=== PATIENT | male | born 1965 | race Two or more races ===

== ENCOUNTER → 2016-09-07 | Outpatient (CLI) | payer MEDICARE ==
[2016-02-25 12:00] VITALS: BP 131/81
[~2016-09-07] MED LIST: ASPI81TA9 PO; ATOR20TA58 PO; ATOR40TA59 PO; LOSA100T6 PO; METO25TA4 PO; PRAS10TA4 PO
== END | disposition home or self-care (01) ==
LOC: LAB 10:04
PROVIDERS: ATTEND Orthopaedic Surgery Sports Medicine
DX: M25.561 Pain in right knee (principal)
CPT/HCPCS: 36415; 85651; 86141

== ENCOUNTER 2016-12-10 16:22 | Emergency (ER) | payer MEDICARE ==
[~2016-12-10] VITALS: Ht 182.9 cm; Wt 99.8 kg
[2016-12-10] MEDS ORDERED: IV NORMAL SALINE 1000ML BAG 1,000 ML IV SCH (17:10)
[2016-12-10] MEDS ORDERED: LORAZEPAM 2 MG/ML VIAL. IV ONE (17:15)
[2016-12-10] MEDS ORDERED: MORPHINE SULFATE 4 MG/ML DISP.SYRIN. IV ONE (17:15)
[2016-12-10 17:31] LABS: BASO # 0.1 x10^3/uL (0.0-0.2); BASO % 1 % (0-3); EOS % 1 % (0-3); HEMATOCRIT 40.1 % (39.0-53.0); HEMOGLOBIN 13.2 g/dL (13.0-17.5); LYMPH # 2.6 x10^3/uL (1.0-4.8); LYMPH % 31 % (24-48); MEAN CORPUSCULAR HEMOGLOBIN 28 pg (25-35); MEAN CORPUSCULAR HGB CONC 33 g/dL (31-37); MEAN CORPUSCULAR VOLUME 84 fL (79-100); MONO % 9 % (0-9); NEUT % 58 % (31-73); PLATELET COUNT 194 x10^3/uL (140-400); RED BLOOD COUNT 4.77 x10^6/uL (4.30-5.70); RED CELL DISTRIBUTION WIDTH 15.2 % (11.5-14.5); WHITE BLOOD COUNT 8.5 x10^3/uL (4.0-11.0)
[2016-12-10 17:59] LABS: CREATININE 0.6 mg/dL (0.7-1.3); POTASSIUM 4.1 mmol/L (3.5-5.1)
[2016-12-10 18:05] LABS: ALBUMIN 3.8 g/dL (3.4-5.0); ALBUMIN/GLOBULIN RATIO 1.2 (1.0-1.7); TOTAL BILIRUBIN 0.5 mg/dL (0.2-1.0); TOTAL PROTEIN 7.1 g/dL (6.4-8.2)
[2016-12-10 18:19] LABS: BILIRUBIN,URINE SMALL (NEG); GLUCOSE,URINE NEGATIVE (NEG); NITRITE,URINE NEGATIVE (NEG); PH,URINE 5.5; PROTEIN,URINE NEGATIVE (NEG-TRACE)
[2016-12-10 18:27] LABS: BACTERIA,URINE 0 /HPF (0-FEW); RBC,URINE 0 /HPF (0-2); SQUAMOUS EPITHELIAL CELL,UR MANY /LPF; WBC,URINE RARE /HPF (0-4)
[2016-12-10 18:54] LABS: NEG OBC FOB NEG; POS OBC FOB POS
[2016-12-10] MEDS ORDERED: IOHEXOL 300 MG/ML 75 ML VIAL IV ONE (19:30)
[2016-12-10] MEDS ORDERED: CONTRAST GIVEN MC PRN (19:30)
--- NOTE | 2016-12-10 19:52 | RAD ---
PROCEDURE Abdomen and pelvis CT with intravenous contrast. HISTORY Rectal pain and rectal bleeding. Weight loss. TECHNIQUE Computed tomographic images the abdomen and pelvis were obtained following the administration of 75 cc Omnipaque 300 intravenous contrast. One or more of the following individualized dose reduction techniques were utilized for this examination: 1. Automated exposure control; 2. Adjustment of the mA and/or kV according to patient size; 3. Use of iterative reconstruction technique. COMPARISON None. FINDINGS Evaluation of the lower thorax demonstrates posterior dependent and basilar atelectasis. No focal hepatic lesion is seen. The gallbladder is contracted, likely due to the postprandial status the patient. The stomach is mildly distended with fluid and recently ingested bolus. The pancreas, spleen, and left adrenal gland are unremarkable. There is slight nodularity along the right adrenal gland, likely due to volume averaging artifact. The kidneys are unremarkable. The appendix is unremarkable. There is distal colonic diverticulosis. Those no convincing diverticulitis. There is slight mucosal thickening involving the left aspect of the inferior rectum, possibly due to relative underdistention. The bladder is unremarkable. No pathologically enlarged lymph node is seen. There are degenerative changes throughout spine, resulting in stenosis at L4-L5 and L5-S1. No suspicious osseous lesion is seen. IMPRESSION 1. Mild mucosal thickening involving the left aspect of the inferior rectum, possibly due to underdistention. There is no surrounding inflammatory stranding to suggest proctitis. Correlate with physical exam findings and possible proctoscopy if there is concern for an intrinsic mucosal lesion. 2. Distal colonic diverticulosis without diverticulitis. Electronically signed by: Shereen Walton (Dec 10, 2016 19:51:08)
[2016-12-10 20:30] VITALS: BP 120/71
[2016-12-10] MEDS ORDERED: OXYC-323 PO (20:39)
[2016-12-10] MEDS ORDERED: SENN1TAB7 PO (20:39)
--- NOTE | 2016-12-10 20:39 | PHYS DOC ---
Past Medical History Past Medical History: Hypertension, MS Past Surgical History: Knee Replacement Additional Past Surgical Histo: heart stents Alcohol Use: None Drug Use: None Adult General Chief Complaint Chief Complaint: WEAKNESS/GENERALIZED HPI HPI Patient is a 51 year old male who presents with rectal pain and episode of rectal bleeding. Patient reports 3-4 days ago he had an episode of blood in his stool. Has had a small amount a few times since. In addition, he reports that over this time he has had sharp pain at his rectum. Pain is worse when he is on his feet. He has not taken any meds for symptoms. Does not take anticoagulants, does take ASA and plavix. No prior similar episodes. Review of Systems Review of Systems Constitutional: Denies fever or chills Respiratory: Denies cough or shortness of breath Cardiovascular: Denies chest pain GI: Rectal pain, bloody stools. Denies abdominal pain, nausea, vomiting, diarrhea : Denies dysuria or hematuria Musculoskeletal: Denies back pain or joint pain Integument: Denies rash or skin lesions Neurologic: Denies headache, focal weakness or sensory changes Current Medications Current Medications Current Medications Medications (Trade) Dose Ordered Sig/Primo Start Time Stop Time Status Last Admin Dose Admin Info (Do NOT chart on this entry -- for MONITORING) 1 each PRN DAILY PRN 12/10/16 19:30 12/10/16 21:06 DC Iohexol (Omnipaque 300 Mg/ml) 75 ml 1X ONCE 12/10/16 19:30 12/10/16 19:31 DC 12/10/16 19:23 75 ML Lorazepam (Ativan) 1 mg 1X ONCE 12/10/16 17:15 12/10/16 17:16 DC 12/10/16 17:31 1 MG Morphine Sulfate 4 mg 1X ONCE 12/10/16 17:15 12/10/16 17:16 DC 12/10/16 17:30 4 MG Oxycodone/ Acetaminophen (Percocet 5/325) 2 tab 1X ONCE 12/10/16 21:00 12/10/16 21:01 DC 12/10/16 20:55 2 TAB Sodium Chloride (Iv Sodium Chloride 0.9% 1000ml Bag) 1,000 ml @ 1,000 mls/hr Q1H 12/10/16 17:10 12/10/16 18:09 DC 12/10/16 17:30 1,000 MLS/HR Allergies Allergies Allergies Coded Allergies Type Severity Reaction Last Updated Verified No Known Drug Allergies 02/23/16 No Physical Exam Physical Exam Constitutional: Well developed, well nourished, no acute distress, non-toxic appearance Cardiovascular: Heart rate normal, regular rhythm, no murmur Lungs & Thorax: Bilateral breath sounds clear to auscultation Abdomen: Bowel sounds normal, soft, non-distended, no TTP Rectal: Small hemorrhoid noted, no blood seen, small amount light brown stool in vault Skin: Warm, dry, no erythema, no rash Extremities: No obvious deformity, no edema Neurologic: Alert and oriented X 3, no gross deficits noted Psychologic: Anxious Current Patient Data Vital Signs Vital Signs Date Time Temp Pulse Resp B/P Pulse Ox O2 Delivery O2 Flow Rate FiO2 12/10/16 20:30 50 19 120/71 96 Room Air 12/10/16 16:35 97.7 97.7 Lab Values Laboratory Tests Test 12/10/16 17:20 12/10/16 18:15 12/10/16 18:47 White Blood Count 8.5x10^3/uL (4.0-11.0) Red Blood Count 4.77x10^6/uL (4.30-5.70) Hemoglobin 13.2g/dL (13.0-17.5) Hematocrit 40.1% (39.0-53.0) Mean Corpuscular Volume 84fL (79-100) Mean Corpuscular Hemoglobin 28pg (25-35) Mean Corpuscular Hemoglobin Concent 33g/dL (31-37) Red Cell Distribution Width 15.2% (11.5-14.5) H Platelet Count 194x10^3/uL (140-400) Neutrophils (%) (Auto) 58% (31-73) Lymphocytes (%) (Auto) 31% (24-48) Monocytes (%) (Auto) 9% (0-9) Eosinophils (%) (Auto) 1% (0-3) Basophils (%) (Auto) 1% (0-3) Neutrophils # (Auto) 5.0x10^3uL (1.8-7.7) Lymphocytes # (Auto) 2.6x10^3/uL (1.0-4.8) Monocytes # (Auto) 0.8x10^3/uL (0.0-1.1) Eosinophils # (Auto) 0.1x10^3/uL (0.0-0.7) Basophils # (Auto) 0.1x10^3/uL (0.0-0.2) Sodium Level 139mmol/L (136-145) Potassium Level 4.1mmol/L (3.5-5.1) Chloride Level 102mmol/L (98-107) Carbon Dioxide Level 28mmol/L (21-32) Anion Gap 9 (6-14) Blood Urea Nitrogen 17mg/dL (8-26) Creatinine 0.6mg/dL (0.7-1.3) L Estimated GFR (Cockcroft-Gault) 142.0 BUN/Creatinine Ratio 28 (6-20) H Glucose Level 107mg/dL (70-99) H Calcium Level 9.0mg/dL (8.5-10.1) Total Bilirubin 0.5mg/dL (0.2-1.0) Aspartate Amino Transferase (AST) 23U/L (15-37) Alanine Aminotransferase (ALT) 27U/L (16-63) Alkaline Phosphatase 84U/L (46-116) Total Protein 7.1g/dL (6.4-8.2) Albumin 3.8g/dL (3.4-5.0) Albumin/Globulin Ratio 1.2 (1.0-1.7) Lipase 758U/L (73-393) H Urine Collection Type Void Urine Color Dk yellow Urine Clarity Clear Urine pH 5.5 Urine Specific [place] >=1.030 Urine Protein Negativemg/dL (NEG-TRACE) Urine Glucose (UA) Negativemg/dL (NEG) Urine Ketones (Stick) Negativemg/dL (NEG) Urine Blood Negative (NEG) Urine Nitrite Negative (NEG) Urine Bilirubin Small (NEG) Urine Urobilinogen Dipstick 1.0mg/dL (0.2 mg/dL) Urine Leukocyte Esterase Trace (NEG) Urine RBC 0/HPF (0-2) Urine WBC Rare/HPF (0-4) Urine Squamous Epithelial Cells Many/LPF Urine Bacteria 0/HPF (0-FEW) Urine Hyaline Casts Many/HPF Urine Mucus Marked/LPF Stool Occult Blood Negative (NEG) Laboratory Tests 12/10/16 17:20 Laboratory Tests 12/10/16 17:20 EKG EKG [] Radiology/Procedures Radiology/Procedures CT A/P: IMPRESSION 1. Mild mucosal thickening involving the left aspect of the inferior rectum, possibly due to underdistention. There is no surrounding inflammatory stranding to suggest proctitis. Correlate with physical exam findings and possible proctoscopy if there is concern for an intrinsic mucosal lesion. 2. Distal colonic diverticulosis without diverticulitis. Course & Med Decision Making Course & Med Decision Making Pertinent Labs and Imaging studies reviewed. (See chart for details) Patient is 51 year old male who presents with rectal pain and blood per rectum. Small hemorrhoid noted on exam, labs and CT ordered to assess for other possible causes. IV fluids, pain meds, small dose of anxiolytic ordered for symptoms. Labs unremarkable except for elevated lipase, however patient has no pain or TTP at site of pancreas and it appears normal on CT so will not further pursue this at this time. Fecal occult blood negative. CT results as above. Discussed results with patient. Discussed option of discharge home with outpatient GI follow up vs admission. Patient ok going home at this time. Will discharge with rx for pain meds, bowel regimen, instructions for close follow up , return precautions. Dragon Disclaimer Dragon Disclaimer This electronic medical record was generated, in whole or in part, using a voice recognition dictation system. Departure Departure Impression: Primary Impression: Rectal pain Additional Impression: Blood per rectum Disposition: 01 HOME, SELF-CARE Condition: STABLE Referrals: MARIA ALEJANDRA LI MD (PCP) DANAE TSANG MD Patient Instructions: Diverticulosis, Rectal Bleeding Additional Instructions: Thank you for allowing us to provide care today in the Emergency Department. Take the provided medication as directed. Use caution when taking the pain medication as it can make you drowsy. Schedule a follow up appointment with a GI specialist using the provided contact information. Also keep your appointment with your primary care physician. Return promptly to the Emergency Department if you develop any new or concerning symptoms. Scripts Sennosides/Docusate Sodium (Senna-Docusate Sodium Tablet)1 Each Tablet1 Each PO DAILY #30 Prov:ERICH BARNEY MD 12/10/16 Oxycodone/Apap 5-325 (Percocet 5-325 Mg Tablet)1 Each Tablet1 Tab PO PRN Q6HRS PRN PAIN #20 TAB Ref 0 Prov:ERICH BARNEY MD 12/10/16 Problem Qualifiers ERICH BARNEY MD Dec 10, 2016 20:39
[2016-12-10] MEDS ORDERED: OXYCODONE/APAP 5/325 TABLET. PO ONE (21:00)
== END 2016-12-10 21:05 | disposition home or self-care (01) ==
LOC: ER 16:22
DX: K62.89 Other specified diseases of anus and rectum (principal); K62.5 Hemorrhage of anus and rectum; K64.9 Unspecified hemorrhoids; I10 Essential (primary) hypertension; I25.2 Old myocardial infarction; Z95.5 Presence of coronary angioplasty implant and graft; R74.8 Abnormal levels of other serum enzymes
CPT/HCPCS: 36415; 74177; 80053; 81001; 82274; 83690; 85027; 87086; 96361; 96374; 96375; 99285; J2060; J2270; J7030; Q9967

== ENCOUNTER → 2016-12-17 | Outpatient (CLI) | payer MEDICARE ==
[2015-12-08 21:58] VITALS: BP 139/73
[~2016-12-17] MED LIST changes: +CLOP75TA PO; +GADOBUTROL 10 MMOL/10 ML VIAL IV ONE; +OXYC-323 PO; -PRAS10TA4 PO; +PRAS10TA9 PO; +SENN1TAB7 PO
[2016-12-17 11:08] LABS: AMYLASE 174 U/L (25-115)
--- NOTE | 2016-12-17 13:07 | RAD ---
MR pelvis without and with intravenous contrast History: Rectal pain for 2 weeks, 1 bloody stool, constipation. Comparison: None. Technique: MRI of the pelvis was performed both prior to and after intravenous gadolinium, 10 mL Gadavist. Precontrast images were T1 without fat saturation and T2 with fat saturation in all 3 anatomic planes. Post contrast imaging was T1 with fat saturation all 3 anatomic planes. Findings: Given the level of distention of the urinary bladder, bladder wall is likely within normal limits. No free fluid is seen within the pelvis. There is evidence of degenerative change involving the visualized lower lumbar spine. Appears to be mild wall thickening of the rectum and anus with mild hyperenhancement. The sigmoid colon demonstrates evidence of colonic diverticulosis, and there is evidence of a mild wall thickening of the sigmoid colon, although it is uncertain if this is due to inflammatory change or is secondary to muscular hypertrophy given the diverticulosis. Impression: 1. There is evidence of mild wall thickening and hyperenhancement of the rectum and anus. Findings are compatible with mild proctitis. 2. Sigmoid colon demonstrates diverticulosis; apparent mild wall thickening of the sigmoid colon could be due to mild distal colitis versus muscular hypertrophy secondary to diverticulosis. 3. No abscess is identified.
== END | disposition home or self-care (01) ==
LOC: MRI 10:15 → MERGE 10:15
PROVIDERS: ATTEND Internal Medicine Gastroenterology
DX: K62.89 Other specified diseases of anus and rectum (principal)
CPT/HCPCS: 36415; 72197; 82150; 83690; A9585

== ENCOUNTER → 2016-12-22 | Outpatient (CLI) | payer MEDICARE ==
[2016-12-10 20:30] VITALS: BP 120/71
[~2016-12-22] MED LIST changes: -GADOBUTROL 10 MMOL/10 ML VIAL IV ONE
--- NOTE | 2016-12-22 10:06 | CARD ---
APPROVED REPORT EXAM: Two-dimensional and M-mode echocardiogram with Doppler and color Doppler. Other Information Quality : GoodHR: 50bpm Rhythm : Bradycardia INDICATION Cardiac Disease: CAD 2D DIMENSIONS RVDd3.7 (2.9-3.5cm)Left Atrium(2D)5.1 (1.6-4.0cm) IVSd1.4 (0.7-1.1cm)Aortic Root(2D)3.1 (2.0-3.7cm) LVDd5.3 (3.9-5.9cm)LVOT Diameter2.3 (1.8-2.4cm) PWd1.3 (0.7-1.1cm)LVDs3.7 (2.5-4.0cm) FS (%) 30.6 %SV79.6 ml LVEF(%)57.6 (>50%) Aortic Valve AoV Peak Ruy.128.7cm/sAoV VTI33.4cm AO Peak GR.6.6mmHgLVOT Peak Ruy.83.6cm/s LVOT VTI 19.38cmAO Mean GR.4mmHg LYDIA (VMAX)1.04mz9JIR (VTI)2.42cm2 Mitral Valve MV E Pcbwbxux34.8cm/sMV DECEL NEMQ687ur MV A Nqqiujze77.4cm/sMV DHH93nl E/A Ratio1.3MV A Hiocsozj209xr MVA (PHT)3.81cm2 TDI E/Lateral E'11.4E/Medial E'12.3 Pulmonary Valve PV Peak Rgmjywqb062.1cm/sPV Peak Grad.4mmHg Tricuspid Valve TR P. Gimgytxq269cu/sTR Peak Gr.37mmHg Pulmonary Vein S1 Oifuotcb72.3cm/sD2 Nocrnuyv35.6cm/s PVa frbrsqrw57ehhj LEFT VENTRICLE The left ventricle is normal size. There is mild concentric left ventricular hypertrophy. The left ve ntricular systolic function is normal and the ejection fraction is within normal range. The Ejection Fraction is 55-60%. There is normal LV segmental wall motion. The left ventricular diastolic function and filling is normal for age. RIGHT VENTRICLE The right ventricle is normal size. There is normal right ventricular wall thickness. The right ventr icular systolic function is normal. ATRIA The left atrium is mildly dilated. The right atrium size is normal. The interatrial septum is intact with no evidence for an atrial septal defect or patent foramen ovale as noted on 2-D or Doppler imagi ng. AORTIC VALVE The aortic valve is mildly thickened. The aortic valve is trileaflet. Doppler and Color Flow revealed no significant aortic regurgitation. There is no significant aortic valvular stenosis. MITRAL VALVE The mitral valve leaflets are mildly thickened. There is no evidence of mitral valve prolapse. There is no mitral valve stenosis. Doppler and Color Flow revealed mild mitral regurgitation. TRICUSPID VALVE Doppler and Color Flow revealed mild tricuspid regurgitation. The pulmonary artery systolic pressure is estimated at 40 mmHg. There is mild pulmonary hypertension. PULMONIC VALVE Doppler and Color Flow revealed no pulmonic valvular regurgitation. There is no pulmonic valvular yonny nosis. GREAT VESSELS The aortic root is normal in size. The ascending aorta is normal in size. The pulmonary artery is nor mal. The IVC is normal in size and collapses >50% with inspiration. PERICARDIAL EFFUSION There is no evidence of significant pericardial effusion. Critical Notification Critical Value: No <Conclusion> The left ventricular systolic function is normal and the ejection fraction is within normal range. Th e Ejection Fraction is 55-60%. There is normal LV segmental wall motion. Doppler and Color Flow revealed mild mitral regurgitation. Doppler and Color Flow revealed mild tricuspid regurgitation. The pulmonary artery systolic pressure is estimated at 40 mmHg. There is mild pulmonary hypertension.
== END | disposition home or self-care (01) ==
LOC: ECHO 08:51
PROVIDERS: ATTEND Internal Medicine Cardiovascular Disease
DX: I08.1 Rheumatic disorders of both mitral and tricuspid valves (principal); I27.2 Other secondary pulmonary hypertension
CPT/HCPCS: 93306

== ENCOUNTER → 2016-12-23 | Day surgery (SDC) | payer MEDICARE ==
[~2016-12-23] MED LIST changes: +HYDROmorphone 2 MG/ML VIAL IV PRN; +IV RINGERS,LACTATED 1000ML 1,000 ML IV SCH; +LIDOCAINE 1% 1 ML SYRINGE. ID PRN; +MORPHINE SULFATE 2 MG/ML DISP.SYRIN. IV PRN; +ONDANSETRON PF 4 MG/2 ML VIAL. IV PRN; +PROCHLORPERAZINE 10 MG/2 ML VIAL. IV PRN; +PROPOFOL 40 ML IV ONE; +fentaNYL PF VIAL 100 MCG/2 ML VIAL IV PRN
[2016-12-23 13:07] VITALS: BP 177/86
== END | disposition home or self-care (01) ==
LOC: ENDOS 11:33
PROVIDERS: ATTEND Internal Medicine Gastroenterology
DX: K64.1 Second degree hemorrhoids (principal); K57.30 Diverticulosis of large intestine without perforation or abscess without bleeding; Z72.89 Other problems related to lifestyle; F17.200 Nicotine dependence, unspecified, uncomplicated
CPT/HCPCS: 45378; J2704

== ENCOUNTER 2017-09-29 05:24 | Inpatient (IN) | payer MEDICARE ==
[2017-09-29] MEDS: ASPIRIN ENTERIC COATED 325 MG TABLET.DR. PO (05:55)
[2017-09-29] MEDS: NITROGLYCERIN SUBLINGUAL 0.4 MG BOTTLE OF 25. SL ×3 (05:55→06:29)
[2017-09-29 06:02] LABS: ADD MAN DIFF? NO
[2017-09-29 06:16] LABS: AGAP ISTAT 16 mmol/L (6-14); BUN ISTAT 17 mg/dL (8-26); CHLORIDE ISTAT 104 mmol/L (98-110); CREATININE ISTAT 0.8 mg/dL (0.5-1.4); GLUCOSE ISTAT 156 mg/dL (70-99); HEMATOCRIT ISTAT 47 % (37-52); ION CA ISTAT 1.19 mmol/L (1.13-1.32); POTASSIUM ISTAT 3.5 mmol/L (3.5-5.0); SODIUM ISTAT 142 mmol/L (135-145); TOT CO2 ISTAT 27 mmol/L (23-32)
[2017-09-29 06:21] LABS: BASO % 0 % (0-3); EOS # 0.1 x10^3/uL (0.0-0.7); EOS % 1 % (0-3); HEMATOCRIT 45.4 % (39.0-53.0); LYMPH # 2.2 x10^3/uL (1.0-4.8); LYMPH % 25 % (24-48); MEAN CORPUSCULAR HEMOGLOBIN 28 pg (25-35); MEAN CORPUSCULAR HGB CONC 33 g/dL (31-37); MEAN CORPUSCULAR VOLUME 83 fL (79-100); MONO # 0.6 x10^3/uL (0.0-1.1); MONO % 7 % (0-9); NEUT # 5.7 x10^3uL (1.8-7.7); NEUT % 67 % (31-73); PLATELET COUNT 203 x10^3/uL (140-400); RED BLOOD COUNT 5.45 x10^6/uL (4.30-5.70); RED CELL DISTRIBUTION WIDTH 14.6 % (11.5-14.5); WHITE BLOOD COUNT 8.6 x10^3/uL (4.0-11.0)
[2017-09-29 06:23] LABS: ANION GAP 11 (6-14); BLOOD UREA NITROGEN 17 mg/dL (8-26); BUN/CREATININE RATIO 19 (6-20); CALCIUM 9.8 mg/dL (8.5-10.1); CARBON DIOXIDE 26 mmol/L (21-32); CHLORIDE 104 mmol/L (98-107); CREATININE 0.9 mg/dL (0.7-1.3); GLUCOSE 163 mg/dL (70-99); POTASSIUM 3.5 mmol/L (3.5-5.1); SODIUM 141 mmol/L (136-145)
[2017-09-29 06:29] LABS: ALBUMIN 4.3 g/dL (3.4-5.0); ALBUMIN/GLOBULIN RATIO 1.2 (1.0-1.7); ALK PHOS 125 U/L (46-116); ALT (SGPT) 36 U/L (16-63); AST (SGOT) 20 U/L (15-37); MAGNESIUM 2.1 mg/dL (1.8-2.4); TOTAL PROTEIN 7.9 g/dL (6.4-8.2)
[2017-09-29 06:31] LABS: TROPONINI < 0.017 ng/mL (0.000-0.055)
[2017-09-29 06:34] LABS: NT-PRO BNP 423 pg/mL (0-124)
[2017-09-29 06:59] LABS: INR 1.1 (0.8-1.1); PROTHROMBIN TIME PATIENT 13.4 SEC (11.7-14.0)
[2017-09-29] MEDS: ONDANSETRON PF 4 MG/2 ML VIAL. IV (07:23)
[2017-09-29] MEDS: MORPHINE SULFATE 2 MG/ML DISP.SYRIN. IV ×2 (07:25→10:59)
[2017-09-29] MEDS: IV NORMAL SALINE 1000ML BAG 1,000 ML IV ×2 (07:26→17:31)
[2017-09-29] MEDS ORDERED: METOPROLOL TART IMMED RELEASE 25 MG TABLET. PO (11:00)
[2017-09-29] MEDS ORDERED: LOSARTAN POTASSIUM 50 MG TABLET. PO (11:00)
[2017-09-29 11:06] LABS: CHOLESTEROL 126 mg/dL (0-200); HDLC 42 mg/dL (40-60); LDLC 72 mg/dL (0-100); NON-HDL CHOLESTEROL 84 mg/dL (0-129); TRIGLYCERIDES 58 mg/dL (0-150); VLDLC 12 mg/dL (0-40)
[2017-09-29] MEDS: METOPROLOL TART IMMED RELEASE 25 MG TABLET. PO ×3 (12:00→20:51)
[2017-09-29] MEDS ORDERED: hydroCHLOROthiazide 12.5 MG CAPSULE PO (12:00)
[2017-09-29] MEDS: CLOPIDOGREL BISULFATE 75 MG TABLET PO (12:25)
[2017-09-29] MEDS: CITALOPRAM 20 MG TABLET. PO (12:26)
[2017-09-29 13:20] LABS: TROPONINI < 0.017 ng/mL (0.000-0.055)
[2017-09-29] MEDS: ENOXAPARIN 40 MG/0.4 ML SYRINGE. SQ (17:31)
[2017-09-29] MEDS: ATORVASTATIN CALCIUM 40 MG TABLET. PO (20:38)
[2017-09-29] MEDS: ZOLPIDEM 5 MG TABLET. PO (20:42)
[2017-09-29 21:50] LABS: TROPONINI < 0.017 ng/mL (0.000-0.055)
[2017-09-30] MEDS: IV NORMAL SALINE 1000ML BAG 1,000 ML IV (03:01)
[2017-09-30 05:18] LABS: ADD MAN DIFF? NO
[2017-09-30 05:42] LABS: BASO % 1 % (0-3); EOS # 0.1 x10^3/uL (0.0-0.7); EOS % 1 % (0-3); HEMATOCRIT 43.5 % (39.0-53.0); HEMOGLOBIN 14.3 g/dL (13.0-17.5); LYMPH # 3.1 x10^3/uL (1.0-4.8); LYMPH % 37 % (24-48); MEAN CORPUSCULAR HEMOGLOBIN 28 pg (25-35); MEAN CORPUSCULAR HGB CONC 33 g/dL (31-37); MEAN CORPUSCULAR VOLUME 85 fL (79-100); MONO # 0.9 x10^3/uL (0.0-1.1); MONO % 12 % (0-9); NEUT # 4.1 x10^3uL (1.8-7.7); NEUT % 50 % (31-73); PLATELET COUNT 193 x10^3/uL (140-400); RED BLOOD COUNT 5.15 x10^6/uL (4.30-5.70); RED CELL DISTRIBUTION WIDTH 14.1 % (11.5-14.5); WHITE BLOOD COUNT 8.2 x10^3/uL (4.0-11.0)
[2017-09-30 07:44] LABS: ALBUMIN 3.8 g/dL (3.4-5.0); ALBUMIN/GLOBULIN RATIO 1.2 (1.0-1.7); ALK PHOS 100 U/L (46-116); ALT (SGPT) 27 U/L (16-63); AST (SGOT) 24 U/L (15-37); CREATININE 0.9 mg/dL (0.7-1.3); POTASSIUM 4.2 mmol/L (3.5-5.1); TOTAL BILIRUBIN 0.6 mg/dL (0.2-1.0); TOTAL PROTEIN 7.1 g/dL (6.4-8.2)
[2017-09-30 07:47] LABS: CALCIUM 9.5 mg/dL (8.5-10.1)
[2017-09-30 07:48] LABS: ANION GAP 10 (6-14); BLOOD UREA NITROGEN 15 mg/dL (8-26); BUN/CREATININE RATIO 17 (6-20); CARBON DIOXIDE 29 mmol/L (21-32); CHLORIDE 106 mmol/L (98-107); GLUCOSE 52 mg/dL (70-99); SODIUM 145 mmol/L (136-145)
[2017-09-30] MEDS: REGADENOSON 0.4 MG/5 ML DISP.SYRIN. IV (09:29)
[2017-09-30] MEDS: CLOPIDOGREL BISULFATE 75 MG TABLET PO (12:24)
[2017-09-30] MEDS: ASPIRIN ENTERIC COATED 81 MG TABLET.DR. PO (12:25)
[2017-09-30] MEDS: CITALOPRAM 20 MG TABLET. PO (12:25)
[2017-09-30] MEDS: METOPROLOL TART IMMED RELEASE 25 MG TABLET. PO (12:25)
== END 2017-09-30 15:36 | disposition home or self-care (01) | DRG 305 ==
LOC: ER 05:24 → 6 SOUTH 07:05
DX: I10 Essential (primary) hypertension (principal); E78.5 Hyperlipidemia, unspecified; I25.118 Atherosclerotic heart disease of native coronary artery with other forms of angina pectoris; F41.1 Generalized anxiety disorder; M19.90 Unspecified osteoarthritis, unspecified site; Z96.651 Presence of right artificial knee joint; I25.2 Old myocardial infarction; Z87.891 Personal history of nicotine dependence; Z82.49 Family history of ischemic heart disease and other diseases of the circulatory system; M17.10 Unilateral primary osteoarthritis, unspecified knee
CPT/HCPCS: 36415; 71045; 78452; 80047; 80053; 80061; 83735; 83880; 84484; 85025; 85610; 93005; 93017; 96374; 96375; 96376; 99285; 99285-25; 99406; A9500; J1650; J2270; J2405; J2785; J7030

== ENCOUNTER 2019-11-09 15:32 | Emergency (ER) | payer BC, MEDICARE ==
[~2019-11-09] VITALS: Ht 182.9 cm; Wt 114.5 kg
[~2019-11-09 15:32] MED LIST changes: +ASPI-612 PO; -ASPI81TA9 PO; -HYDROmorphone 2 MG/ML VIAL IV PRN; -IV RINGERS,LACTATED 1000ML 1,000 ML IV SCH; +LEXAPRO20 MG PO; -LIDOCAINE 1% 1 ML SYRINGE. ID PRN; +LOSA100T14 PO; -LOSA100T6 PO; -MORPHINE SULFATE 2 MG/ML DISP.SYRIN. IV PRN; -ONDANSETRON PF 4 MG/2 ML VIAL. IV PRN; -OXYC-323 PO; +OXYC1TAB15 PO; -PROCHLORPERAZINE 10 MG/2 ML VIAL. IV PRN; -PROPOFOL 40 ML IV ONE; +SENN-161 PO; -SENN1TAB7 PO; -fentaNYL PF VIAL 100 MCG/2 ML VIAL IV PRN
[2019-11-09 15:58] VITALS: BP 169/98
--- NOTE | 2019-11-09 16:12 | PHYS DOC ---
Past Medical History Past Medical History: High Cholesterol, Hypertension, [place] Past Surgical History: Knee Replacement Additional Past Surgical Histo: heart stents (ABOUT ONE YEAR AGO), RIGHT KNEE Smoking Status: Light Tobacco Smoker Alcohol Use: None Drug Use: None Adult General Chief Complaint Chief Complaint: KNEE INJURY [facility] HPI Patient is a 54 year old male who presents with right knee pain. Patient states that he had been in bed last night, rolling over, when he felt a tear in his right knee. States he has noted some increased swelling since that time. States he has had little increased in discomfort and swelling over the last 4 to 5 months, however last night it seemed to get worse after he fell flat tear. States he did have a prior replacement of that knee, 8 years prior, has not had any issues since then. Denies any recent fever. Denies any recent injury. Denies trauma. States he has been walking with a crutch but is because he feels unsteady on that leg. Has not taken anything for the pain. Review of Systems Review of Systems Constitutional: Denies fever or chills [] Respiratory: Denies cough or shortness of breath [] Cardiovascular: No additional information not addressed in HPI [] Musculoskeletal: Denies back pain, complains of discomfort to right knee with swelling [] Integument: Denies rash or skin lesions [] Neurologic: Denies focal weakness or sensory changes [] All other systems were reviewed and found to be within normal limits, except as documented in this note. Allergies Allergies Allergies Coded Allergies Type Severity Reaction Last Updated Verified No Known Drug Allergies 12/23/16 No Physical Exam Physical Exam Constitutional: Well developed, well nourished, no acute distress, non-toxic appearance. [] Skin: Warm, dry, no erythema, no rash. [] Back: No tenderness, no CVA tenderness. [] Extremities: No tenderness, no cyanosis, no clubbing, ROM intact, no edema. Right knee with noted swelling, no mass noted. No erythema noted. Noted surgical incision, well-healed. Tenderness on palpation. Noted discomfort on any manipulation of the, medial, lateral, anterior and posterior. No posterior swelling noted. Pulse intact and sensation intact to lower extremity. [] Neurologic: Alert and oriented X 3, normal motor function, normal sensory function, no focal deficits noted. [] Current Patient Data Vital Signs Vital Signs Date Time Temp Pulse Resp B/P (MAP) Pulse Ox O2 Delivery O2 Flow Rate FiO2 11/09/19 15:58 97.8 80 18 169/98 (121) 98 Room Air 97.8 EKG EKG [] Radiology/Procedures Radiology/Procedures [] FINDINGS: There is a moderate-sized suprapatellar effusion. Postsurgical changes of a right total knee arthroplasty is seen. No evidence of periprosthetic fracture or lucency. Bone mineralization is normal. No acute or healed fractures. Visualized soft tissues are unremarkable. IMPRESSION: Right total knee arthroplasty with a small to moderate suprapatellar effusion. Exposure: One or more of the following in the visualized dose reduction techniques were utilized for this examination: 1. Automated exposure control 2. Adjustment of the MA and/or KV according to patient size 3. Use of iterative of reconstructive technique Electronically signed by: Jayla Cervantes MD (11/09/2019 4:51 PM) [id number] Course & Med Decision Making Course & Med Decision Making Pertinent Labs and Imaging studies reviewed. (See chart for details) [Discussed use of NSAIDs, continues crutches, ice. Discussed importance of use of immobilizer. Follow-up with primary care, Will provide Rx for Ibuprofen. ] Dragon Disclaimer Dragon Disclaimer This electronic medical record was generated, in whole or in part, using a voice recognition dictation system. Departure Departure Impression: Primary Impression: Knee effusion, right Disposition: 01 HOME, SELF-CARE Condition: STABLE Referrals: MARIA ALEJANDRA LI MD (PCP) Patient Instructions: Knee Effusion, Knee Immobilizer, [id number] Additional Instructions: As we discussed, there was no noted fracture. Treatment for swelling and potential ligament injury starts with immobilizing the extremity and conservative treatment, such as ice, ibuprofen, rest, and immobilization. if you continue to have the discomfort after 2 weeks, your primary care provider can consider follow up with orthopedics for further testing if necessary. The swelling is likely as a result of inflammation and soft tissue swelling from the twisting. Wear the knee immobilizer any time you are up and walking for the next 10 days. Continue to use your crutches as needed. Follow up with your primary care provider next week Scripts Ibuprofen (IBUPROFEN) 600 Mg Tablet 600 MG PO PRN Q6HRS PRN for INFLAMMATION for 20 Days, #60 TAB Prov: JIM PALMER [employer] RO[employer] ATTENDANT 11/09/19 JIM PALMER APRN Nov 09, 2019 16:12
--- NOTE | 2019-11-09 16:54 | RAD ---
Exam: CT right lower extremity without contrast INDICATION: Swelling, pain, prior knee replacement TECHNIQUE: Sequential axial images through the right lower extremity obtained without IV contrast. Sagittal and coronal reformatted images were reconstructed from the axial data and reviewed. Comparisons: None FINDINGS: There is a moderate-sized suprapatellar effusion. Postsurgical changes of a right total knee arthroplasty is seen. No evidence of periprosthetic fracture or lucency. Bone mineralization is normal. No acute or healed fractures. Visualized soft tissues are unremarkable. IMPRESSION: Right total knee arthroplasty with a small to moderate suprapatellar effusion. Exposure: One or more of the following in the visualized dose reduction techniques were utilized for this examination: 1. Automated exposure control 2. Adjustment of the MA and/or KV according to patient size 3. Use of iterative of reconstructive technique Electronically signed by: Jayla Cervantes MD (11/09/2019 4:51 PM) [id number]
[2019-11-09] MEDS ORDERED: IBUP-1007 PO (17:05)
== END 2019-11-09 17:20 | disposition home or self-care (01) ==
LOC: ER 15:32
DX: M25.461 Effusion, right knee (principal); R60.0 Localized edema; E78.00 Pure hypercholesterolemia, unspecified; I10 Essential (primary) hypertension; I25.2 Old myocardial infarction; Z98.890 Other specified postprocedural states
CPT/HCPCS: 29505; 73700; 99284

== ENCOUNTER → 2020-10-03 | Outpatient (CLI) | payer BC, MEDICARE ==
[~2020-10-03] MED LIST changes: -ASPI-612 PO; +ASPI-886 PO; +IBUP-1007 PO
--- NOTE | 2020-10-03 14:50 | KCIC ---
XR CHEST 2V INDICATION: SOA, fatigue, tested positive for covid 7 months ago COMPARISON STUDY: None. FINDINGS: Lungs: Normal lung volume. No pulmonary mass or consolidation. The tracheobronchial tree and hilar st ructures are normal. Pleura: No pleural effusion or pneumothorax. Heart and Mediastinum: The cardiomediastinal silhouette is normal. The great vessels of the thorax ar e normal. Bones and Soft Tissues: The bones and soft tissues are within normal limits. IMPRESSION: No acute cardiopulmonary process. Electronically signed by: Attila Langston MD (10/03/2020 2:48 PM) [id number]
== END ==
LOC: KCIC 10:42
PROVIDERS: ATTEND Nurse Practitioner Gerontology
DX: R06.02 Shortness of breath (principal); R53.83 Other fatigue; Z86.16 Personal history of COVID-19
CPT/HCPCS: 71046

== ENCOUNTER → 2021-09-11 | Outpatient (CLI) | payer OTHER ==
[2021-01-17 05:00] VITALS: BP 177/77
[~2021-09-11] MED LIST changes: +AMOX1TAB61 PO
== END ==
LOC: MERGE 00:13 → LAB 00:13
PROVIDERS: ATTEND Internal Medicine Pulmonary Disease
DX: R51.9 Headache, unspecified (principal); R09.89 Other specified symptoms and signs involving the circulatory and respiratory systems; R68.83 Chills (without fever); R53.81 Other malaise; Z20.822 Contact with and (suspected) exposure to COVID-19
CPT/HCPCS: U0003; U0005